=== PATIENT | male | born 2005 | race Caucasian/White ===

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

== ENCOUNTER 2025-08-20 21:02 | Emergency (ER) | payer MEDICAID ==
[~2025-08-20] VITALS: Ht 187.9 cm; Wt 126.1 kg
[~2025-08-20 21:02] MED LIST changes: +LANTUS SOL100 UNIT/1 SC; +LISINOPRIL20 MG PO; +METFORMIN HCL1000 M1 PO; +NOVOLIN R100 UNIT/1 SQ; +PROVENTIL HFA6.7 GM INH; +SIMVASTATIN20 MG PO; +TESSALON PERLE100 M1 PO; +WELLBUTRIN SR150 MG PO
[2025-08-20] MEDS ORDERED: LANTUS100 UNIT/1 SC (21:06)
[2025-08-20 21:28] LABS: BASO # 0.1 10*3/uL (0.0-0.1); BASO % 0.5 % (0.0-1.0); EOS # 0.0 10*3/uL (0.0-0.4); EOS % 0.3 % (1.0-4.0); MEAN CELL VOLUME 86.2 fl (80.0-94.0); MEAN CORPUSCULAR HGB 28.4 pg (27.0-31.0); MEAN PLATELET VOLUME 9.7 fl (9.6-12.3); MONO # 0.6 10*3/uL (0.1-1.0); MONO % 5.7 % (3.0-9.0); NEUT # 7.0 10*3/uL (2.3-7.9); NEUT % 70.3 % (47.0-73.0); NUCLEATED RED BLOOD CELL 0.0 % (0.0-0.0); NUCLEATED RED BLOOD CELL 0.0 10*3/uL (0.0-0.0); PLATELET COUNT AUTOMATED 255 10*3/uL (130-400); RED CELL DISTRI WIDTH 12.4 % (0-14.5)
[2025-08-20 21:52] LABS: BUN 7 mg/dl (9-23); SGPT/ALT 21 U/L (5-49)
[2025-08-20 22:04] LABS: ETHYL ALCOHOL < 3.0 mg/dl (<3)
[2025-08-20 22:05] LABS: BILIRUBIN Negative (Negative); BLOOD Negative (Negative); CLARITY Clear (Clear); COLOR Yellow (Yellow); KETONE 4+ (Negative); LEUKO ESTERASE Negative (Negative); NITRITE Negative (Negative); PH 5.5 (4.5-8.0); SPECIFIC GRAVITY >= 1.030 (1.001-1.030); UROBILINOGEN 1.0 E.U./dl (0.0-1.0)
[2025-08-20 22:12] LABS: BACTERIA TRACE; MUCOUS 3+; URINE AMPHETAMINES Negative (1000ng/ml); URINE BARBITURATES Negative (200ng/ml); URINE BENZODIAZEPINES Negative (200ng/ml); URINE CANNABINOIDS (THC) Positive (50ng/ml); URINE COCAINE Negative (300ng/ml); URINE METHADONE Negative (300ng/ml); URINE OPIATES Negative (300ng/ml); URINE PHENCYCLIDINE Negative (25ng/ml)
== END 2025-08-20 23:34 | disposition home or self-care (01) ==
LOC: ED 21:02
PROVIDERS: Internal Medicine
DX: F43.21 Adjustment disorder with depressed mood (principal); F41.9 Anxiety disorder, unspecified; E11.9 Type 2 diabetes mellitus without complications

== ENCOUNTER 2025-10-29 22:28 | Emergency (ER) | payer MEDICAID ==
[~2025-10-29] VITALS: Ht 190.5 cm; Wt 113.4 kg
[~2025-10-29 22:28] MED LIST changes: +LANTUS100 UNIT/1 SC
== END 2025-10-30 00:06 | disposition home or self-care (01) ==
LOC: ED 22:28
DX: U07.1 COVID-19 (principal); F41.9 Anxiety disorder, unspecified; E11.9 Type 2 diabetes mellitus without complications